=== PATIENT | male | born 1985 ===

== ENCOUNTER 2023-06-28 21:34 | Emergency (ER) | payer SELFPAY ==
[2023-06-28 21:36] VITALS: BP 136/83; PULSE 75; RESP 18; TEMP 36.6; O2SAT 96; BMI 28.0
== END 2023-06-28 23:39 | disposition left against medical advice (07) ==
LOC: ED 23:39
PROVIDERS: PCP Family Medicine
DX: K08.89 Other specified disorders of teeth and supporting structures (principal); M54.9 Dorsalgia, unspecified; M25.519 Pain in unspecified shoulder; Z53.21 Procedure and treatment not carried out due to patient leaving prior to being seen by health care provider